=== PATIENT | male | born 1970 | race American Indian/Alaskan Native ===

== ENCOUNTER 2017-03-07 22:36 | Inpatient (IN) | payer OTHER ==
[2017-03-07] MEDS ORDERED: CARDIZEM IV ONE (23:01)
[2017-03-07] MEDS ORDERED: NACL 0.9% 1000 ML 1,000 ML IV ONE (23:02)
[2017-03-07] MEDS ORDERED: ASPIRIN PO ONE (23:02)
[2017-03-07 23:08] LABS: Basophils % (Auto) 0.5 % (0.0-1.8); Eosinophils % (Auto) 1.4 % (0.0-4.3); Hematocrit 47.4 % (35.5-45.6); Hemoglobin 15.9 gm/dl (11.8-15.2); Mean Corpuscular HGB Conc 34 % (32-34); Mean Corpuscular Hemoglobin 31 pg (28-32); Mean Corpuscular Volume 92 fl (84-94); Platelet Count 204 K/mm3 (140-440); Red Blood Count 5.13 M/mm3 (3.65-5.03); Red Cell Distribution Width 14.7 % (13.2-15.2)
[2017-03-07 23:26] LABS: Anion Gap 25 mmol/L; BUN/Creatinine Ratio 16.66; Blood Urea Nitrogen 10 mg/dL (9-20); Calcium 8.5 mg/dL (8.4-10.2); Carbon Dioxide 17 mmol/L (22-30); Chloride 100.6 mmol/L (98-107); Glucose 177 mg/dL (75-100); Potassium 3.1 mmol/L (3.6-5.0); Sodium 139 mmol/L (137-145)
--- NOTE | 2017-03-07 23:35 | Emergency Department Report ---
ED Chest Pain HPI - General Chief Complaint: Chest Pain Stated Complaint: CHEST PAIN Time Seen by Provider: 03/07/17 22:45 Source: EMS Mode of arrival: Stretcher Limitations: No Limitations - History of Present Illness MD Complaint: chest pain -: Gradual Onset: during rest, during exertion Pain Location: substernal, left chest Pain Radiation: none Severity: mild Severity scale (0 -10): 3 Quality: tightness, aching Consistency: constant Improves With: nothing Worsens With: nothing re: dyspnea. denies: nausea Other Symptoms: cough Treatments Prior to Arrival: none Aspirin use within the Past 7 Days: (0) No - Related Data Home Medications Medication Instructions Recorded Confirmed Last Taken Unobtainable 03/07/17 03/07/17 Unknown Allergies Allergy/AdvReac Type Severity Reaction Status Date / Time No Known Allergies Allergy Unverified 03/07/17 22:40 Heart Score - HEART Score History: Slightly suspicious EKG: Non-specific Age: 45-65 Risk factors: 1-2 risk factors Troponin: < normal limit HEART Score: 3 ED Review of Systems ROS: Stated complaint: CHEST PAIN Other details as noted in HPI Comment: All other systems reviewed and negative ED Past Medical Hx - Social History Smoking Status: Current Every Day Smoker Substance Use Type: Alcohol - Medications Home Medications: Home Medications Medication Instructions Recorded Confirmed Last Taken Type Unobtainable 03/07/17 03/07/17 Unknown History ED Physical Exam - General Limitations: No Limitations General appearance: alert, in no apparent distress - Head Head exam: Present: atraumatic, normocephalic - Eye Eye exam: Present: normal appearance, PERRL, EOMI - ENT ENT exam: Present: normal exam, normal orophraynx, mucous membranes moist - Neck Neck exam: Present: normal inspection - Respiratory Respiratory exam: Present: normal lung sounds bilaterally. Absent: respiratory distress - Cardiovascular Cardiovascular Exam: Present: regular rate, normal rhythm. Absent: systolic murmur, diastolic murmur, rubs, gallop - GI/Abdominal GI/Abdominal exam: Present: soft, normal bowel sounds. Absent: distended, tenderness, guarding, rebound - Rectal Rectal exam: Present: deferred - Extremities Exam Extremities exam: Present: normal inspection - Back Exam Back exam: Present: normal inspection - Neurological Exam Neurological exam: Present: alert, oriented X3 - Psychiatric Psychiatric exam: Present: normal affect, normal mood - Skin Skin exam: Present: warm, dry, intact, normal color. Absent: rash ED Course Vital Signs 03/07/17 03/07/17 03/07/17 22:36 23:07 23:20 Temperature 98.1 F Pulse Rate 105 H 105 H 90 Respiratory 20 Rate Blood Pressure 128/62 [Left] O2 Sat by Pulse 98 Oximetry RACHEAL score - Racheal Score Age > 65: (0) No Aspirin use within the Past 7 Days: (0) No 3 or more CAD Risk Factors: (0) No 2 or more Angina events in past 24 hrs: (0) No Known CAD with more than 50% Stenosis: (0) No Elevated Cardiac Markers: (0) No ST Deviation Greater than 0.5mm: (0) No RACHEAL Score: 0 ED Medical Decision Making - Lab Data Result diagrams: 03/07/17 22:49 03/07/17 22:49 - Radiology Data Radiology results: report reviewed, image reviewed - Medical Decision Making will need admission for new onset a-fib / shortness of breath , waiting on labs , offered to cardiovert him but he rather have me use medication first. talked to hospitalist and agree with plan for admission. Critical care time in (mins) excluding proc time.: 35 Critical care attestation.: If time is entered above; I have spent that time in minutes in the direct care of this critically ill patient, excluding procedure time. ED Disposition Clinical Impression: Atrial fibrillation, Atrial fibrillation with RVR Disposition: OP ADMIT IP TO THIS HOSP Is pt being admited?: Yes Does the pt Need Aspirin: No Condition: Good Referrals: PRIMARY CARE, [Primary Care Provider] - 3-5 Days Time of Disposition: 00:36
[2017-03-08] MEDS ORDERED: ZOFRAN IV PRN (01:31)
[2017-03-08] MEDS ORDERED: DULCOLAX PR PRN (01:31)
[2017-03-08] MEDS ORDERED: MORPHINE IV PRN (01:31)
[2017-03-08] MEDS ORDERED: MILK OF MAGNESIA PO PRN (01:31)
--- NOTE | 2017-03-08 01:31 | History and Physical Report ---
History of Present Illness Date of examination: 03/08/17 Date of admission: 03/08/17 Chief complaint: Palpitation, shortness of breath, dizziness History of present illness: Patient is 47-year-old with history of hypertension. He presents with sudden onset of palpitation followed by dizziness and shortness of breath. Emergency Department was found to have rapid atrial fibrillation. He was given Cardizem 20 mg IV 1 dose and is now rate controlled. He denies any chest pain. patient will be admitted to telemetry for further workup. Past History Past Medical History: hypertension Past Surgical History: No surgical history Social history: , lives with family, smoking, alcohol abuse (couple beers daily), full code Family history: diabetes, hypertension Medications and Allergies Allergies Allergy/AdvReac Type Severity Reaction Status Date / Time No Known Allergies Allergy Verified 03/08/17 01:02 Home Medications Medication Instructions Recorded Confirmed Last Taken Type Unobtainable 03/07/17 03/07/17 Unknown History Active Meds: Active Medications Diltiazem HCl (Cardizem) 60 mg PO Q6H JEFFREY Review of Systems All systems: negative Exam - Physical Exam Narrative exam: Gen appearance: Not in acute distress HEENT: normocephalic, atraumatic Neck:supple, no JVD, Lungs: Clear to auscultation bilat, no wheezes Heart :S1 and S2 irregular irregular rapid, no murmurs, rubs or gallop Abdomen: Soft, non-tender, non-distended, normal bowel sounds. Extremities : No edema no clubbing or cyanosis Neuro: Awake, alert oriented 3, normal speech, no focal neurological signs - Constitutional Vitals: Temp Pulse Resp BP Pulse Ox 98.1 F 114 H 18 144/93 98 03/07/17 22:36 03/08/17 01:00 03/08/17 01:00 03/08/17 01:00 03/08/17 01:00 Results - Labs CBC & Chem 7: 03/07/17 22:49 03/07/17 22:49 Labs: Abnormal lab results 03/07/17 03/07/17 Range/Units 22:49 22:49 RBC 5.13 H (3.65-5.03) M/mm3 Hgb 15.9 H (11.8-15.2) gm/dl Hct 47.4 H (35.5-45.6) % Lymph % (Auto) 54.3 H (13.4-35.0) % [place] % (Auto) 8.0 H (0.0-7.3) % Seg Neutrophils % 35.8 L (40.0-70.0) % Carbon Dioxide 17 L (22-30) mmol/L Creatinine 0.6 L (0.8-1.5) mg/dL Glucose 177 H (75-100) mg/dL Assessment and Plan Atrial fibrillation with rapid ventricular response, new onset. Admit to telemetry. Patient was given Cardizem 20 mg IV in emergency department and is now rate controlled. start oral Cardizem 60 mg by mouth every 6 hours. Obtain Echocardiogram. Obtain TSH, FT4, Mg, Phos. Consult cardiology. Start Lovenox 1 mg/kg every 12 hours for anticoagulation Hypertension. Monitor BP DVT prophylaxis. Lovenox Full CODE STATUS
[2017-03-08 01:59] LABS: Magnesium 1.8 mg/dL (1.7-2.3); Phosphorous 3.1 mg/dL (2.5-4.5)
[2017-03-08] MEDS: CARDIZEM PO SCH ×4 (02:05→21:15)
[2017-03-08] MEDS: LOVENOX SUB-Q SCH ×2 (02:05→18:06)
[2017-03-08 02:10] LABS: INR 0.93 (0.87-1.13)
[2017-03-08 02:11] LABS: Partial Thromboplastin Time 30.2 Sec. (24.2-36.6)
[2017-03-08 07:24] LABS: Hemoglobin 16.1 gm/dl (11.8-15.2); Mean Corpuscular HGB Conc 34 % (32-34); Mean Corpuscular Hemoglobin 31 pg (28-32); Mean Corpuscular Volume 92 fl (84-94); Platelet Count 185 K/mm3 (140-440); Red Blood Count 5.19 M/mm3 (3.65-5.03); Red Cell Distribution Width 14.8 % (13.2-15.2); White Blood Count 7.5 K/mm3 (4.5-11.0)
[2017-03-08 08:25] LABS: Anion Gap 15 mmol/L; Blood Urea Nitrogen 9 mg/dL (9-20); Calcium 8.1 mg/dL (8.4-10.2); Carbon Dioxide 22 mmol/L (22-30); Glucose 110 mg/dL (75-100); Potassium 4.4 mmol/L (3.6-5.0); Sodium 142 mmol/L (137-145)
--- NOTE | 2017-03-08 08:32 | Progress Note ---
Assessment and Plan Assessment and plan: Patient is 47-year-old with history of hypertension. He presents with sudden onset of palpitation followed by dizziness and shortness of breath. Emergency Department was found to have rapid atrial fibrillation. His heart rate is not controlled on oral Cardizem Atrial fibrillation with rapid ventricular response, new onset. * Continue oral Cardizem, Alfredo VASC score is 1, therefore give aspirin for stroke prophylaxis, continue Lovenox until echo is done, cardiology consult pending, obtain echo, thyroid function are within normal limits, check BMP this morning Hypertension. Well controlled, continue Cardizem as above Tobacco abuse * tobacco cessation counseling, Nicotine patches prn DVT prophylaxis. Full anticoagulated Full CODE STATUS History Interval history: Denies palpitations, chest pain or shortness of breath Hospitalist Physical - Physical exam Narrative exam: General: Patient appears well in no distress HEENT: MMM, EOMI cardiac: S1-S2 heard lungs: clear to auscultation, abdomen: soft, nontender, nondistended bowel sounds positive extremities: no edema clubbing or cyanosis Skin: no rash or lesion Neuro: no focal deficit Psych: appropriate behavior and mood, cognition intact - Constitutional Vitals: Temp Pulse Resp BP Pulse Ox 98.4 F 88 20 129/87 99 03/08/17 04:31 03/08/17 05:11 03/08/17 04:31 03/08/17 04:31 03/08/17 04:31 Results - Labs CBC & Chem 7: 03/08/17 06:50 03/08/17 06:50 Labs: Laboratory Last Values WBC 7.5 K/mm3 (4.5-11.0) 03/08/17 06:50 RBC 5.19 M/mm3 (3.65-5.03) H 03/08/17 06:50 Hgb 16.1 gm/dl (11.8-15.2) H 03/08/17 06:50 Hct 48.0 % (35.5-45.6) H 03/08/17 06:50 MCV 92 fl (84-94) 03/08/17 06:50 MCH 31 pg (28-32) 03/08/17 06:50 MCHC 34 % (32-34) 03/08/17 06:50 RDW 14.8 % (13.2-15.2) 03/08/17 06:50 Plt Count 185 K/mm3 (140-440) 03/08/17 06:50 Lymph % (Auto) 54.3 % (13.4-35.0) H 03/07/17 22:49 [place] % (Auto) 8.0 % (0.0-7.3) H 03/07/17 22:49 Eos % (Auto) 1.4 % (0.0-4.3) 03/07/17 22:49 Baso % (Auto) 0.5 % (0.0-1.8) 03/07/17 22:49 Lymph # 4.3 K/mm3 (1.2-5.4) 03/07/17 22:49 [place] # 0.6 K/mm3 (0.0-0.8) 03/07/17 22:49 Eos # 0.1 K/mm3 (0.0-0.4) 03/07/17 22:49 Baso # 0.0 K/mm3 (0.0-0.1) 03/07/17 22:49 Seg Neutrophils % 35.8 % (40.0-70.0) L 03/07/17 22:49 Seg Neutrophils # 2.9 K/mm3 (1.8-7.7) 03/07/17 22:49 PT 12.4 Sec. (12.2-14.9) 03/08/17 01:44 INR 0.93 (0.87-1.13) 03/08/17 01:44 APTT 30.2 Sec. (24.2-36.6) 03/08/17 01:44 Sodium 142 mmol/L (137-145) 03/08/17 06:50 Chloride 109.0 mmol/L (98-107) H 03/08/17 06:50 Carbon Dioxide 22 mmol/L (22-30) 03/08/17 06:50 Anion Gap 15 mmol/L 03/08/17 06:50 BUN 9 mg/dL (9-20) 03/08/17 06:50 Creatinine 0.6 mg/dL (0.8-1.5) L 03/08/17 06:50 Estimated GFR > 60 ml/min 03/08/17 06:50 BUN/Creatinine Ratio 15.00 % 03/08/17 06:50 Glucose 110 mg/dL (75-100) H 03/08/17 06:50 Calcium 8.1 mg/dL (8.4-10.2) L 03/08/17 06:50 Phosphorus 3.10 mg/dL (2.5-4.5) 03/08/17 01:18 Magnesium 1.80 mg/dL (1.7-2.3) 03/08/17 01:18 Troponin T 0.016 ng/mL (0.00-0.029) 03/08/17 01:44 NT-Pro-B Natriuret Pep 19.45 pg/mL (0-450) 03/07/17 23:01 TSH 1.070 mlU/mL (0.270-4.200) 03/08/17 01:18 Free T4 0.90 ng/dL (0.76-1.46) 03/08/17 01:18
[2017-03-08] MEDS ORDERED: HABITROL TD PRN (10:00)
[2017-03-08] MEDS: ASPIRIN PO SCH (11:47)
--- NOTE | 2017-03-08 12:10 | Consultation ---
History of Present Illness Consult date: 03/08/17 Consult reason: atrial fibrillation History of present illness: Patient is a 47yr old male with a history of Hypertension and tobacco abuse who presented with palpitations associated with shortness of breath, dizziness and diaphoresis. He denies syncope. Patient was found to be in atrial fibrillation which was treated with cardizem in the ED. He has since reverted to a normal sinus rhythm. Cardiac consultation was requested for atrial fibrillation. Patient denies prior history of arrhythmias. There is no prior cardiac workup. Laboratory values shows a normal TSH. He admits to consumption of 2 beers on yesterday while watching the game prior to his shortness of breath and palpitations. Past History Past Medical History: hypertension Past Surgical History: No surgical history Social history: , lives with family, smoking, alcohol abuse (couple beers daily), full code Family history: diabetes, hypertension Medications and Allergies Allergies Allergy/AdvReac Type Severity Reaction Status Date / Time No Known Allergies Allergy Verified 03/08/17 01:02 Home Medications Medication Instructions Recorded Confirmed Last Taken Type Unobtainable 03/07/17 03/07/17 Unknown History Active Meds: Active Medications Acetaminophen (Tylenol) 650 mg PO Q4H PRN PRN Reason: Pain MILD(1-3)/Fever >100.5/BERMUDEZ Aspirin (Aspirin) 325 mg PO QDAY [facility] Last Admin: 03/08/17 11:47 Dose: 325 mg Bisacodyl (Dulcolax) 10 mg ME QDAY PRN PRN Reason: Constipation unrelieved by MOM Diltiazem HCl (Cardizem) 60 mg PO Q6H [facility] Last Admin: 03/08/17 11:47 Dose: 60 mg Enoxaparin Sodium (Lovenox) 90 mg 1 mg/kg (90 mg) SUB-Q Q12H [facility] Last Admin: 03/08/17 02:05 Dose: 90 mg Magnesium Hydroxide (Milk Of Magnesia) 30 ml PO Q4H PRN PRN Reason: Constipation Morphine Sulfate (Morphine) 2 mg IV Q4H PRN PRN Reason: Pain, Moderate (4-6) Nicotine (Habitrol) 7 mg TD QDAY PRN PRN Reason: tobacco craving Ondansetron HCl (Zofran) 4 mg IV Q6H PRN PRN Reason: nausea or vomiting Physical Examination Vital Signs Resp 21 03/07/17 22:28 General appearance: no acute distress HEENT: Positive: PERRL Neck: Positive: trachea midline Cardiac: Positive: Reg Rate and Rhythm Lungs: Positive: Decreased Breath Sounds Neuro: Positive: Grossly Intact Extremities: Absent: edema Results 03/08/17 06:50 03/08/17 06:50 Coagulation 03/08/17 Range/Units 01:44 PT 12.4 (12.2-14.9) Sec. INR 0.93 (0.87-1.13) APTT 30.2 (24.2-36.6) Sec. CBC 03/08/17 Range/Units 06:50 WBC 7.5 (4.5-11.0) K/mm3 RBC 5.19 H (3.65-5.03) M/mm3 Hgb 16.1 H (11.8-15.2) gm/dl Hct 48.0 H (35.5-45.6) % Plt Count 185 (140-440) K/mm3 Comprehensive Metabolic Panel 03/08/17 Range/Units 06:50 Sodium 142 (137-145) mmol/L Potassium 4.4 D (3.6-5.0) mmol/L Chloride 109.0 H (98-107) mmol/L Carbon Dioxide 22 (22-30) mmol/L BUN 9 (9-20) mg/dL Creatinine 0.6 L (0.8-1.5) mg/dL Glucose 110 H (75-100) mg/dL Calcium 8.1 L (8.4-10.2) mg/dL Assessment and Plan Atrial fibrillation, new onset since reverted to a sinus rhythm normal LVEF 55-60% on echo Hypertension Tobacco abuse Recommendations: Continue oral cardizem for suppression of Afib. Low CHADS 2 score, aspirin therapy only. Stress test before discharge.
--- NOTE | 2017-03-08 12:31 | Admit Criteria Form ---
Admission Criteria Documentation: ATRIAL FIBRILLATION Clinical Indications for Admission to Inpatient Care (lower brule/check or initial the applicable condition/criteria) Admission is indicated for ANY ONE of the following(1)(2)(3)(4)(5)(6)(7)(8): [ ]I. Myocardial ischemia that persists despite outpatient and observation care treatment (13) [ ]II. Myocardial infarction [ ]III. Hemodynamic instability [ ]IV. Heart failure (e.g., pulmonary edema) (14) [ ]V. Altered mental status that is severe or persistent complications secondary to comorbidities (eg, symptomatic heart failure) [ ]. Syncope [ ]VII. Patient has implantable cardioverter defibrillator that has fired more than once within past 24hror needs immediate adjustment of settings that cannot be done other than in inpatient setting. (15) [ ]VIII. Suspected accessory pathway (e.g., Qknfs-Ltcpimixs-Rcmtj syndrome) on ECG [ ]IX. Medication toxicity (e.g., digitalis) causing arrhythmia(16) [ ]X. Underlying medical condition that necessitates inpatient care(e.g., thyrotoxicosis, pneumonia)(17) [ ]XI. Continuous ECG monitoring is required for condition causing arrhythmia (e.g., severe hyperkalemia, hypokalemia, acid-base disturbance)(18)(19)(20) [ ]XII. Initiation of antiarrhythmic drug therapy is needed in patient at high risk of adverse effects as indicated by ANY ONE of the following: [ ]a) Significant structural heart disease (e.g., reduced ejection fraction, congenital heart disease, valvular heart disease) [ ]b) Prolonged QT interval [ ]c) Underlying sinus node or atrioventricular conduction disturbances [ ]d) Need for treatment with antiarrhythmic drugs that have significant proarrhythmic potential (e.g., dofetilide, sotalol, procainamide) [ ]e) Patient whose sinus rhythm has never been observed on ECG [ ]XIII. Persistent symptomatic tachycardia (rate > 100 bpm) despite outpatient and observation level of care (eg, rate cannot be sufficiently controlled [X ]XIV. Elective or urgent cardioversion that cannot be performed on outpatient basis or during observation care. [A] (Use also A Fib: Observation Care ) as appropriate.(21)(22)(23) [X]XV. New Onset Extended stay beyond goal length of stay may be needed for (1)(43)(44): [ ]a) Unstable comorbidities (eg, heart failure, COPD, renal insuffciency) [ ]b) Persistently uncontrolled atrial fibrillation or other arrhythmias (45) [ ]c) Acute thromboembolic event (e.g., stroke, limb ischemia) [ ]d) Need for inpatient attainment of full anticoagulation(28)(46)(47) The original [facility] [email or web address] content created by [facility] [employer] has been revised. The portions of the content which have been revised are identified through the use of italic text or in bold, and [facility] [employer] has neither reviewed nor approved the modified material. All other unmodified content is copyright [facility] [employer]. Please see references footnoted in the original [facility] [employer] edition 2017 Admission Criteria Met: Yes
[2017-03-08] MEDS: TYLENOL PO PRN (21:16)
[2017-03-09] MEDS: CARDIZEM PO SCH ×4 (02:46→21:07)
[2017-03-09] MEDS: LOVENOX SUB-Q SCH ×2 (02:47→13:40)
[2017-03-09] MEDS ORDERED: LEXISCAN IV ONE ×2 (08:10)
[2017-03-09] MEDS ORDERED: TYLENOL ONE (10:50)
[2017-03-09] MEDS: TYLENOL PO PRN (10:53)
--- NOTE | 2017-03-09 11:10 | Discharge Summary ---
Providers - Providers Date of Admission: 03/08/17 01:31 Attending physician: ROYER STOREY MD Primary care physician: [employer] Hospitalization Condition: Good Hospital course: Patient is 47-year-old with history of hypertension. He presents with sudden onset of palpitation followed by dizziness and shortness of breath. Emergency Department was found to have rapid atrial fibrillation. His heart rate is not controlled on oral Cardizem Atrial fibrillation with rapid ventricular response, new onset. * Continue oral Cardizem, Alfredo VASC score is 1, therefore give aspirin for stroke prophylaxis, continue Lovenox until echo is done, cardiology consult pending, obtain echo, thyroid function are within normal limits, check BMP this morning Hypertension. Well controlled, continue Cardizem as above Tobacco abuse * tobacco cessation counseling, Nicotine patches prn DVT prophylaxis. Full anticoagulated Full CODE STATUS Disposition: - TO HOME OR SELFCARE Time spent for discharge: 32 minutes Core Measure Documentation - Palliative Care Palliative Care/ Comfort Measures: Not Applicable - Core Measures Any of the following diagnoses?: none Exam - Constitutional Vitals: Temp Pulse Resp BP Pulse Ox 97.6 F 68 18 157/115 99 03/09/17 04:47 03/09/17 04:47 03/09/17 04:47 03/09/17 04:47 03/09/17 04:47 General appearance: Present: no acute distress, well-nourished - EENT Eyes: Present: PERRL ENT: hearing intact, clear oral mucosa - Neck Neck: Present: supple, normal ROM - Respiratory Respiratory effort: normal Respiratory: bilateral: CTA - Cardiovascular Heart Sounds: Present: S1 & S2. Absent: rub, click - Extremities Extremities: pulses symmetrical, No edema Peripheral Pulses: within normal limits - Abdominal General gastrointestinal: Present: soft, non-tender, non-distended, normal bowel sounds Male genitourinary: Present: normal - Integumentary Integumentary: Present: clear, warm, dry - Musculoskeletal Musculoskeletal: gait normal, strength equal bilaterally - Psychiatric Psychiatric: appropriate mood/affect, intact judgment & insight - Neurologic Neurologic: CNII-XII intact, moves all extremities Plan Follow up with: PRIMARY CARE, [Primary Care Provider] - 3-5 Days WILMAR HOUSTON MD [Staff Physician] - 7 Days Prescriptions: Aspirin [Aspirin TAB] 325 mg PO QDAY #30 tablet Diltiazem HCl [Diltiazem 24Hr ER] 2 tab PO DAILY #60 cap.er.24h Nicotine [Habitrol] 7 mg TD QDAY PRN #30 patch PRN Reason: tobacco craving Valsartan/Hydrochlorothiazide [Diovan Hct 320-25 mg] 1 tab PO QDAY #30 tablet
[2017-03-09] MEDS: ASPIRIN PO SCH (13:39)
--- NOTE | 2017-03-09 13:51 | Progress Note ---
Assessment and Plan Paroxysmal Atrial fibrillation, single episode which terminated within 24 hours. [id number] VASc = 1 No significant ischemia based on MPI normal LVEF 55-60% on echo Hypertension Tobacco abuse Recommend: Titrate anti-hypertensive medications as needed. Pt should take low dose aspirin at time of discharge. Outpatient cardiology f/u - consider AAD or ablation if he has future episodes of PAF. Subjective Date of service: 03/09/17 Interval history: No cardiac complaints. MPI today revealed no significant ischemia. Objective Vital Signs Temp Pulse Resp BP Pulse Ox 03/09/17 10:43 88 180/113 03/09/17 10:42 85 188/119 03/09/17 10:41 89 185/114 03/09/17 10:40 91 H 171/114 03/09/17 10:39 96 H 184/117 03/09/17 10:38 100 H 185/119 03/09/17 10:35 66 187/119 03/09/17 04:47 97.6 F 68 18 157/115 99 03/09/17 02:46 78 155/105 03/09/17 00:56 78 03/09/17 00:12 98 F 78 18 155/105 92 03/08/17 21:16 18 03/08/17 21:15 85 156/95 03/08/17 20:44 98.9 F 83 20 156/95 98 03/08/17 18:33 77 03/08/17 16:00 98.7 F 80 18 156/86 98 - Physical Examination HEENT: Positive: PERRL Neck: Positive: trachea midline Cardiac: Positive: Regular Rate. Negative: Audible Murmur Lungs: Positive: clear to auscultation Neuro: Positive: Grossly Intact Abdomen: Positive: Soft, Active Bowel Sounds Extremities: Absent: edema
[2017-03-09] MEDS: APRESOLINE IV PRN ×2 (17:14→23:31)
[2017-03-09] MEDS: DIOVAN PO SCH (21:07)
[2017-03-10] MEDS: LOVENOX SUB-Q SCH (03:00)
[2017-03-10] MEDS: CARDIZEM PO SCH ×2 (03:00→09:56)
[2017-03-10] MEDS: DIOVAN PO SCH (09:57)
[2017-03-10] MEDS: ASPIRIN PO SCH (09:57)
--- NOTE | 2017-03-10 10:13 | Progress Note ---
Assessment and Plan Paroxysmal Atrial fibrillation, single episode which terminated within 24 hours. [id number] VASc = 1 No significant ischemia based on MPI normal LVEF 55-60% on echo Hypertension Tobacco abuse Recommend: Change to long acting cardizem Pt should take low dose aspirin at time of discharge. Outpatient cardiology f/u - consider AAD or ablation if he has future episodes of PAF. Subjective Date of service: 03/10/17 Interval history: No cardiac complaints. Objective Vital Signs Temp Pulse Resp BP Pulse Ox 03/10/17 07:00 98.0 F 78 20 140/92 100 03/10/17 03:00 98.4 F 78 18 134/90 100 03/09/17 23:31 84 174/101 03/09/17 23:00 98.4 F 84 18 174/101 98 03/09/17 22:00 80 18 03/09/17 21:07 175/99 03/09/17 19:55 97.8 F 78 18 175/99 99 03/09/17 18:34 83 20 189/98 03/09/17 18:00 98.4 F 83 20 180/98 100 03/09/17 17:20 71 18 164/116 03/09/17 10:43 88 180/113 03/09/17 10:42 85 188/119 03/09/17 10:41 89 185/114 03/09/17 10:40 91 H 171/114 03/09/17 10:39 96 H 184/117 03/09/17 10:38 100 H 185/119 03/09/17 10:35 66 187/119 - Physical Examination HEENT: Positive: PERRL Neck: Positive: trachea midline Cardiac: Positive: Reg Rate and Rhythm Lungs: Positive: clear to auscultation Neuro: Positive: Grossly Intact Abdomen: Positive: Soft, Active Bowel Sounds Extremities: Absent: edema
[2017-03-10 10:26] VITALS: BP 146/78
[2017-03-10] MEDS ORDERED: CARDIZEM CD PO SCH (11:00)
--- NOTE | 2017-03-10 12:02 | Progress Note ---
Assessment and Plan Assessment and plan: Patient is 47-year-old with history of hypertension. He presents with sudden onset of palpitation followed by dizziness and shortness of breath. Emergency Department was found to have rapid atrial fibrillation. His heart rate is not controlled on oral Cardizem Atrial fibrillation with rapid ventricular response, new onset. * Continue oral Cardizem, Alfredo VASC score is 1, therefore give aspirin for stroke prophylaxis, continue Lovenox until echo is done, cardiology consult pending, obtain echo, thyroid function are within normal limits, check BMP this morning Hypertensive urgency. * add diovan and hydralazine iv prn Tobacco abuse * tobacco cessation counseling, Nicotine patches prn DVT prophylaxis. Full anticoagulated Full CODE STATUS Hospitalist Physical - Constitutional Vitals: Temp Pulse Resp BP Pulse Ox 97.6 F 68 20 146/78 100 03/10/17 10:24 03/10/17 10:24 03/10/17 10:24 03/10/17 10:24 03/10/17 10:00 General appearance: Present: no acute distress, well-nourished Results - Labs CBC & Chem 7: 03/08/17 06:50 03/08/17 06:50 Labs: Laboratory Last Values WBC 7.5 K/mm3 (4.5-11.0) 03/08/17 06:50 RBC 5.19 M/mm3 (3.65-5.03) H 03/08/17 06:50 Hgb 16.1 gm/dl (11.8-15.2) H 03/08/17 06:50 Hct 48.0 % (35.5-45.6) H 03/08/17 06:50 MCV 92 fl (84-94) 03/08/17 06:50 MCH 31 pg (28-32) 03/08/17 06:50 MCHC 34 % (32-34) 03/08/17 06:50 RDW 14.8 % (13.2-15.2) 03/08/17 06:50 Plt Count 185 K/mm3 (140-440) 03/08/17 06:50 Lymph % (Auto) 54.3 % (13.4-35.0) H 03/07/17 22:49 Whiteside % (Auto) 8.0 % (0.0-7.3) H 03/07/17 22:49 Eos % (Auto) 1.4 % (0.0-4.3) 03/07/17 22:49 Baso % (Auto) 0.5 % (0.0-1.8) 03/07/17 22:49 Lymph # 4.3 K/mm3 (1.2-5.4) 03/07/17 22:49 Whiteside # 0.6 K/mm3 (0.0-0.8) 03/07/17 22:49 Eos # 0.1 K/mm3 (0.0-0.4) 03/07/17 22:49 Baso # 0.0 K/mm3 (0.0-0.1) 03/07/17 22:49 Seg Neutrophils % 35.8 % (40.0-70.0) L 03/07/17 22:49 Seg Neutrophils # 2.9 K/mm3 (1.8-7.7) 03/07/17 22:49 PT 12.4 Sec. (12.2-14.9) 03/08/17 01:44 INR 0.93 (0.87-1.13) 03/08/17 01:44 APTT 30.2 Sec. (24.2-36.6) 03/08/17 01:44 Sodium 142 mmol/L (137-145) 03/08/17 06:50 Potassium 4.4 mmol/L (3.6-5.0) D 03/08/17 06:50 Chloride 109.0 mmol/L (98-107) H 03/08/17 06:50 Carbon Dioxide 22 mmol/L (22-30) 03/08/17 06:50 Anion Gap 15 mmol/L 03/08/17 06:50 BUN 9 mg/dL (9-20) 03/08/17 06:50 Creatinine 0.6 mg/dL (0.8-1.5) L 03/08/17 06:50 Estimated GFR > 60 ml/min 03/08/17 06:50 BUN/Creatinine Ratio 15.00 % 03/08/17 06:50 Glucose 110 mg/dL (75-100) H 03/08/17 06:50 Calcium 8.1 mg/dL (8.4-10.2) L 03/08/17 06:50 Phosphorus 3.10 mg/dL (2.5-4.5) 03/08/17 01:18 Magnesium 1.80 mg/dL (1.7-2.3) 03/08/17 01:18 Troponin T 0.016 ng/mL (0.00-0.029) 03/08/17 01:44 NT-Pro-B Natriuret Pep 19.45 pg/mL (0-450) 03/07/17 23:01 TSH 1.070 mlU/mL (0.270-4.200) 03/08/17 01:18 Free T4 0.90 ng/dL (0.76-1.46) 03/08/17 01:18
--- NOTE | 2017-03-11 05:35 | Treadmill Report ---
THALLIUM STRESS TEST LEFT VENTRICLE: Left ventricular chamber size at the upper limits of normal. Perfusion study demonstrates fairly homogeneous uptake of the tracer in all segments, no significant perfusion defects identified. Mild diaphragmatic attenuation artifact is noted. Gated analysis demonstrates normal left ventricular systolic function, ejection fraction 66%. CONCLUSION: Normal myocardial perfusion study. JOB# [id number] CA/NTS
== END 2017-03-10 15:26 | disposition home or self-care (01) | DRG 310 ==
LOC: ED 22:36 → 4A 03-08 01:31 → ED 03-08 02:21
PROVIDERS: ADMIT Internal Medicine; ATTEND Internal Medicine
DX: I48.0 Paroxysmal atrial fibrillation (principal); I10 Essential (primary) hypertension; F17.210 Nicotine dependence, cigarettes, uncomplicated; I16.0 Hypertensive urgency; F10.10 Alcohol abuse, uncomplicated; Z82.49 Family history of ischemic heart disease and other diseases of the circulatory system; Z83.3 Family history of diabetes mellitus
CPT/HCPCS: 36415; 78452; 80048; 83735; 83880; 84100; 84439; 84443; 84484; 85025; 85027; 85610; 85730; 93005; 93010; 93017; 93306; 96361; 96374; 99406; A9502; J0360; J1650; J2785; J7030